=== PATIENT | male | born 1995 | race Caucasian/White ===

== ENCOUNTER 2017-04-17 10:26 | Emergency (ER) | payer BC ==
[~2017-04-17] VITALS: Ht 198.1 cm; Wt 127.1 kg
[2017-04-17 10:29] VITALS: TEMP 36.7; Ht 198.1 cm; Wt 127.1 kg
[2017-04-17] MEDS ORDERED: XYLOCAINE 1%/SOD BICARB 20 ML VIAL INFIL ONE (11:30)
[2017-04-17] MEDS ORDERED: OXYCODONE HCL IR 5 MG TAB (IMMEDIATE RELEASE) PO STA (12:04)
[2017-04-17] MEDS ORDERED: OXYCODONE IR HOME PACK PO ONE (12:15)
[2017-04-17] MEDS ORDERED: AMOXICILLIN/CLAVULANATE TAB 875 MG TAB PO ONE (12:15)
[2017-04-17] MEDS ORDERED: AMOX875T PO (12:18)
--- NOTE | 2017-04-17 12:18 | EMERGENCY ROOM VISIT NOTE ---
History Report prepared by Radhames: Roula Robledo Under the Supervision of: Dr. David Beavers M.D. First contact with patient: 10:32 Chief Complaint: WOUND INFECTION Stated Complaint: ABSCESS X 3 DAYS-NEAR ANUS History of Present Illness The patient is a 22 year old male who presents to the Emergency Room with complaints of an episode of a wound infection starting 3 days ago. The patient states that he has been having anal pain and went to [facility]. He reports that they sent him here. He states that it started after a severe episode of diarrhea. He notes that it is worse when walking. The patient currently rates his pain as a 7/10 in severity. He denies a fever, family history of MRSA or infection, history of abscess, and the use of steroids. Source of History: patient Onset: 3 days ago Position: other (rectum) Symptom Intensity: 7/10 Timing: other (episode) Modifying Factors (Worsening): movement (walking) Associated Symptoms: + diarrhea, No fevers Note: The patient denies a fever, family history of MRSA or infection, history of abscess, and the use of steroids. Review of Systems See HPI for pertinent positives & negatives. A total of 6 systems reviewed and were otherwise negative. Family History No pertinent family history Social History Smoking Status: Never Smoker Drug Use: none Marital Status: single Housing Status: lives with roommate Occupation Status: student Current/Historical Medications Scheduled Amoxicillin & Pot Clavulanate (Augmentin 875-125 mg), 875 MG PO BID Allergies Coded Allergies: No Known Allergies (Unverified , 04/17/17) Physical Exam Vital Signs Date Time Temp Pulse Resp B/P (MAP) Pulse Ox O2 Delivery O2 Flow Rate FiO2 04/17/17 12:26 68 20 158/81 99 Room Air 04/17/17 12:00 68 16 162/64 99 04/17/17 10:29 36.7 75 18 170/80 97 Room Air Physical Exam GENERAL: Patient is well appearing and in no acute distress. HEENT: No acute trauma, normocephalic atraumatic, mucous membranes moist, no nasal congestion, no scleral icterus. NECK: No stridor, no adenopathy, no meningismus, trachea is midline. LUNGS: No dyspnea. Clear to auscultation and equal bilaterally. No wheeze, no rhonchi. HEART: Regular rate and rhythm. No murmurs, rubs, gallops appreciated. ABDOMEN: Soft, nontender, bowel sounds positive, no masses appreciated, no peritonitis. BACK: No midline tenderness, no CVA tenderness : 2 cm firm mass with tenderness to the left rectum. EXTREMITIES: Normal motion all extremities, no cyanosis, no edema. NEUROLOGIC: Alert and oriented, no acute motor or sensory deficits, no focal weakness, cranial nerves grossly intact. SKIN: No rash, no jaundice, no diaphoresis. Medical Decision & Procedures Medications Administered Medications (Trade) Dose Ordered Sig/Jasvir Route Start Time Stop Time Status Last Admin Dose Admin Lidocaine HCl (Buffered Lidocaine 1% Inj) 20 ml ONE ONCE INFIL 04/17/17 11:30 04/17/17 11:31 DC 04/17/17 11:57 20 ML Amoxicillin/ Clavulanate Potassium (Augmentin Tab) 875 mg ONE ONCE PO 04/17/17 12:15 04/17/17 12:16 DC 04/17/17 12:28 875 MG Oxycodone HCl (Roxicodone Immediate Rel Tab) 10 mg NOW STAT PO 04/17/17 12:04 04/17/17 12:05 DC 04/17/17 12:27 10 MG Oxycodone HCl (Roxicodone Immediate Rel 5MG Home Pack) 1 homepack UD ONCE PO 04/17/17 12:15 04/17/17 12:16 DC 04/17/17 12:28 1 HOMEPACK ED Course 1102: The patient was evaluated in room B12B. A complete history and physical exam was performed. 1121: I discussed the patient's case with Dr. Valle. He will come evaluate the patient. 1130: Ordered Lidocaine HCl 20 ml INFIL. 1204: Ordered Oxycodone HCl 10 mg PO. 1213: Reevaluated the patient. Discussed results and discharge instructions: he verbalized understanding and agreement. The patient is ready for discharge. 1215: Ordered Oxycodone HCl 1 homepack PO, Augmentin Tab 875 mg PO. Medical Decision Differential diagnoses include abscess, phlegmon, internal hemorrhoid. 22 yr old male with rectal abscess evaluated and drained by gen surg. Appreciate their help with this case. Will treat with Augmentin, to go oxy ir ( restrictions reviewed) and standard outpatient care of abscess. He is aware the risks of fistula/reaccumulation. Reviewed need to follow up with Gen Surg. Consults Time Called: 1107 Consulting Physician: Dr. Valle Returned Call: 1121 I discussed the patient's case with Dr. Valle. He will come evaluate the patient. Impression Primary Impression: Perirectal abscess Scribe Attestation The scribe's documentation has been prepared under my direction and personally reviewed by me in its entirety. I confirm that the note above accurately reflects all work, treatment, procedures, and medical decision making performed by me. Departure Information Dispostion Home / Self-Care Prescriptions Amoxicillin & Pot Clavulanate (Augmentin 875-125 mg) 1 Tab Tab 875 MG PO BID for 10 Days, #20 TAB Prov: David Beavers M.D. 04/17/17 Referrals Hong Castle M.D. (PCP) Forms HOME CARE DOCUMENTATION FORM, IMPORTANT VISIT INFORMATION, WORK / SCHOOL INSTRUCTIONS Patient Instructions ED Angelica Anal Abscess [facility], My [facility] Additional Instructions Please schedule follow up appointment with Surgeon for recheck. Take warm soapy bath two to three times daily over the next few days. Return immediately if severe pain, heavy bleeding, fevers, or other concerns. You have received a narcotic pain medication. These medications may cause drowsiness and should not be used with other sedative medications. Do not drive , drink alcohol, perform dangerous activities, nor make important decisions after taking these medications. penitentiary use or inappropriate use may lead to addiction.
[2017-04-17 12:26] VITALS: BP 158/81; PULSE 68; O2SAT 99
--- NOTE | 2017-04-17 21:36 | CONSULTATION REPORT ---
DATE OF CONSULTATION: 04/17/2017 SEEN IN: Emergency Room on 04/17/2017. TIME SEEN: At 12:00. SUMMARY: I was called by the ER regarding Ian Renteria, who presented with a roughly of a 3-day history of perirectal pain. He was evaluated on a clinical basis. He apparently had a small perirectal abscess. Therefore, we came in to evaluate him. This is a 22-year-old student who has had bouts of diarrhea for the last 3 or 4 days and noticed some perirectal pain. On examination, his temperature was 36.7, his pulse 60, respirations 16, blood pressure 162/64. In the prone position, the cheeks were spread. At the 3 o'clock position, there seemed an area of fluctuance that was quite tender, probably about a cm and a half or two at most in diameter. There was no skin cellulitis. But consistently, it had findings of an abscess. The area was shaved and prepped with Betadine solution. The 1% Xylocaine without epinephrine was used to infiltrate on top of it until achieving a satisfactory level. At this point, we made about 1 inch incision through the area, some bloody and slightly purulent fluid came out, but nothing significantly as far as under pressure. I probed the area with pickups and a small needle nazario and could not elicit any more drainage. I did not pack the area. I basically placed a 4 x 4 in the area. Asked the gentleman to use some Sitz bath. We will give him some Augmentin and he is to follow up in our office in over a week or when his time permits.. I know that what is his schedule, what supports him and I will be available this week, but he certainly can call us if any time if there are any new problems arise. As stated, he will be out of town from Tuesday on. MTDD
== END 2017-04-17 12:37 | disposition home or self-care (01) ==
LOC: C.EDB 10:28
DX: K61.1 Rectal abscess (principal)

== ENCOUNTER 2018-01-06 13:08 | Emergency (ER) | payer BC ==
[~2018-01-06] VITALS: Ht 198.1 cm; Wt 129.2 kg
[2018-01-06 13:29] VITALS: TEMP 36.7; Ht 198.1 cm; Wt 129.2 kg
[2018-01-06] MEDS ORDERED: AMOXICILLIN/CLAVULANATE TAB 875 MG TAB PO ONE (14:15)
[2018-01-06] MEDS ORDERED: LIDO/EPINEPHRINE/SOD BICARB 20 ML VIAL INFIL ONE (14:15)
[2018-01-06] MEDS ORDERED: AMOX875T PO (15:02)
[2018-01-06] MEDS ORDERED: HYDR-5688 PO (15:02)
--- NOTE | 2018-01-06 15:04 | EMERGENCY ROOM VISIT NOTE ---
ED Visit Note First contact with patient: 13:40 CHIEF COMPLAINT: Infection near rectum 2-3 days HISTORY OF PRESENT ILLNESS: Patient is a healthy 22-year-old male who presents emergency department for an infection near his rectum. He states that he had an abscess there in April that was drained by surgery. Initial I&D was performed here in the emergency department by Dr. Valle, then had to be redone in the office a few days later. Patient states that he did well until the last 2-3 days. He had pressure on the left side of his buttocks/rectal area for about 2-3 days and developed more pain today. No drainage or discharge noted. No fever or chills. He rates his pain a 5/10. REVIEW OF SYSTEMS: Review of systems as per HPI. All other systems reviewed were negative. 10 systems reviewed. PMH: Electronic medical records are reviewed and summarized as above/below. See Problem List. SOCIAL HISTORY: Patient lives at home with his family. College student. He does not smoke.. PHYSICAL EXAM: Vital Signs: Reviewed Nurse's notes. CONSTITUTIONAL: Patient is a well-appearing 22-year-old male who is awake and alert and in no acute distress. INTEGUMENTARY: Examination of the left fabrice-anal area note no erythema, increased warmth or overt cellulitic changes. At roughly 7 or 8:00 off of the lateral aspect of the rectum, he does have a tender, slightly indurated area. It is about the width of my fingertip. There is no fluctuance appreciated and no pointing. EMERGENCY DEPARTMENT COURSE: The patient was seen and assessed as above. His old records were reviewed. He presents the emergency department with a left- sided perianal abscess that he has had previously. He would like to proceed with I&D. Procedure note is as noted below. A small amount of packing was placed. Wound care measures were discussed. Patient only placed on Augmentin. He was given [place] for pain. He will return to the emergency department in 48 hours for a wound recheck and packing removal. Differential diagnoses include cellulitis, perirectal/perianal abscess, among others. Medication reconciliation: I attest that I have personally reviewed the patient' s current medication list. Blood pressure screening: Patient was found to have a slightly elevated blood pressure due to circumstances. I do not believe that the patient requires hypertension monitoring. Using saline and Betadine cleansing, lidocaine anesthesia, and sterile technique, the abscess cavity was incised with a number 15 scalpel blade. Purulent material drained and more was expressed. The abscess cavity was then cleaned out with cotton-tipped applicator swabs dipped in Betadine and an iodoform guaze drain inserted. Problem List Medical Problems: (1) Perirectal abscess Status: Resolved Surgical Problems: (1) History of elbow surgery Status: Resolved Current/Historical Medications Scheduled Amoxicillin & Pot Clavulanate (Augmentin 875-125 mg), 1 TAB PO BID Scheduled PRN Hydrocodone/Acetaminophen 5MG/325MG ([place] 5MG/325MG), 1-2 TABLETS PO Q4 PRN for Pain Allergies Coded Allergies: No Known Allergies (Unverified , 04/17/17) Vital Signs Date Time Temp Pulse Resp B/P (MAP) Pulse Ox O2 Delivery O2 Flow Rate FiO2 01/06/18 15:09 68 16 145/78 96 01/06/18 13:29 36.7 72 18 162/86 96 Room Air Medications Administered Medications (Trade) Dose Ordered Sig/Jasvir Route Start Time Stop Time Status Last Admin Dose Admin Amoxicillin/ Clavulanate Potassium (Augmentin Tab) 875 mg ONE ONCE PO 01/06/18 14:15 01/06/18 14:16 DC 01/06/18 14:29 875 MG Departure Information Impression Primary Impression: Perianal abscess Prescriptions Hydrocodone/Acetaminophen 5MG/325MG ([place] 5MG/325MG) Tab 1-2 TABLETS PO Q4 Y for Pain, #14 TAB For Initial Treatment Prov: Kay Moore PA 01/06/18 Amoxicillin & Pot Clavulanate (Augmentin 875-125 mg) 1 Tab Tab 1 TAB PO BID, #20 TAB Prov: Kay Moore PA 01/06/18 Referrals No Doctor, Assigned (PCP) Dhaval Valle M.D. Patient Instructions My [facility] Additional Instructions Hydrocodone/Acetaminophen ([place]) 5/325 mg: Take 1-2 pills every four hours for breakthrough pain. Avoid alcohol, operating machinery or dangerous equipment, working on ladders or roofs, DRIVING, or situations where being under the influence may be dangerous. It is recommended to use an elby-bwn-iogsbog stool softener such as Colace, 100mg twice daily while taking this medication to avoid constipation. Amoxicillin Clavulanate (Augmentin) 875mg: Take one pill twice daily for 10 days for your infection. All antibiotics can cause diarrhea. If this occurs and you feel worse or it does not resolve in 1-2 days follow up with your doctor or return to the Emergency Department as this could be signs of serious underlying problems. Any medication can cause an allergic reaction, stop the pills immediately and return to the ER for rash, hives, breathing difficulties, or swelling. Ibuprofen(Motrin, Advil) may be used for fever or pain. Use 600mg every six hours as needed. Take with food. Avoid using more than 2400mg in a 24 hour period. Do not use 2400mg per day for more than three consecutive days without physician direction. Prolonged inappropriate use can lead to stomach upset or ulcers. (AND/OR) Acetaminophen(Tylenol) may be used for fever or pain. Use 1000mg every six hours as needed. Avoid using more than 3000mg in a 24 hour period. Warm compresses or sitz baths to the affected area 4 times daily for 15-20 minutes. May shower. Be careful to not remove the packing material when bathing or changing the bandage. Rest and drink plenty of fluids. Continue current medications. Return to the ER in 48 hours for packing removal and wound recheck, sooner for severe pain, persistent fevers, spreading redness, or any worsening of your condition. Follow up with your general surgeon next week for recheck.
[2018-01-06 15:09] VITALS: BP 145/78; PULSE 68; O2SAT 96
== END 2018-01-06 15:12 | disposition home or self-care (01) ==
LOC: C.EDB 13:09 → C.EDD 15:12
DX: K61.0 Anal abscess (principal)

== ENCOUNTER 2018-01-08 10:18 | Emergency (ER) | payer BC ==
[~2018-01-08] VITALS: Ht 198.1 cm; Wt 130.9 kg
[~2018-01-08 10:18] MED LIST: AMOX875T PO; HYDR-5688 PO
[2018-01-08 10:35] VITALS: Ht 198.1 cm; Wt 130.9 kg
[2018-01-08] MEDS ORDERED: LIDO/EPINEPHRINE/SOD BICARB 20 ML VIAL INFIL ONE (11:00)
--- NOTE | 2018-01-08 11:53 | EMERGENCY ROOM VISIT NOTE ---
ED Visit Note First contact with patient: 10:38 CHIEF COMPLAINT: Recheck perianal abscess HISTORY OF PRESENT ILLNESS: Patient is a 22-year-old male who returns the emergency department as advised for recheck of a perianal abscess. He was seen and evaluated by myself 2 days ago for similar complaint. I&D was performed, with some purulent drainage noted. The patient actually called in and spoke with me yesterday that he was concerned that the packing had become dislodged while bathing yesterday, but he did feel that it was still in the wound. He returns today for recheck and packing removal. He does note increasing pain however. He has had no further drainage since yesterday. He is taking the Augmentin as prescribed. Stanton is helping for pain at night so that he can sleep. REVIEW OF SYSTEMS: Review of systems as per HPI. All other systems reviewed were negative. At least 6 systems reviewed. PMH: Electronic medical records are reviewed and summarized as above/below. See Problem List. SOCIAL HISTORY: Patient lives at home. College student. PHYSICAL EXAM: Vital Signs: Reviewed Nurse's notes. Patient is a well- appearing 22-year-old male who is awake and alert and in no acute distress. INTEGUMENTARY: Examination of the rectal area shows the packing to be gone, and the small I&D site is already granulating over and is only able to be with attention. The patient appears to have a more well-defined abscess on the left side, extending out from the rectal area more laterally. There is a significant area of tenderness, but no overt fluctuance. EMERGENCY DEPARTMENT COURSE: The patient was seen and assessed as above. On examination the packing is gone. The tiny I&D site from 2 days ago is essentially granulated closed. The abscess however does appear to be more superficial and well-defined. The actual area of tenderness and fluctuance is more lateral than it was a couple of days ago. Repeat ID was discussed and patient was in agreement. I&D was performed as noted below in the procedure note. There was significant purulent drainage, I was able to enter a obvious cavity and decompress the abscess. Patient will continue the Augmentin. Continue local wound care measures as previously discussed. He was advised to recheck with Dr. Valle in 48 hours, as he treated the patient for his 1st abscess. Medication reconciliation: I attest that I have personally reviewed the patient' s current medication list. Blood pressure screening: Patient was found to have a slightly elevated blood pressure due to circumstances. I do not believe that the patient requires hypertension monitoring. Incision & Drainage Indication: Recurrent left perianal abscess Location: Perianal area Verbal consent was obtained after the risks and benefits were explained, including but not limited to bleeding, scarring, infection, pain, and bone/joint /nerve damage. At this time, the risks of the procedure are less than the risks of NOT performing the procedure. A time out was taken and the correct patient and site identified. The skin was prepped with betadine and a sterile field set. The wound was anesthetized with lidocaine without epinephrine. The abscess cavity was entered with a number 11 blade and significant purulent material was expressed with pressure, I was able to enter a well-defined abscess cavity with the needle diesel pile driver operator and broke a gauze dressing was applied. A sterile dressing applied. Detailed wound care instructions and signs and symptoms of worsening infection reviewed with the patient. No complications and the patient tolerated the procedure well. Problem List Medical Problems: (1) Perirectal abscess Status: Resolved Surgical Problems: (1) History of elbow surgery Status: Resolved Current/Historical Medications Scheduled Amoxicillin & Pot Clavulanate (Augmentin 875-125 mg), 1 TAB PO BID Scheduled PRN Hydrocodone/Acetaminophen 5MG/325MG (Stanton 5MG/325MG), 1-2 TABLETS PO Q4 PRN for Pain Allergies Coded Allergies: No Known Allergies (Unverified , 01/08/18) Vital Signs Date Time Temp Pulse Resp B/P (MAP) Pulse Ox O2 Delivery O2 Flow Rate FiO2 01/08/18 11:54 36.7 76 20 148/71 95 01/08/18 10:35 36.7 76 20 148/71 95 Room Air Departure Information Impression Primary Impression: Perianal abscess Referrals No Doctor, Assigned (PCP) Dhaval Valle M.D. Patient Instructions My [facility] Additional Instructions Finish Augmentin as prescribed. Continue Stanton, Tylenol and ibuprofen as previously discussed for pain. Warm compresses/Sitz baths to the affected area 4 times daily for 15-20 minutes. Rest and drink plenty of fluids. Continue current medications. Follow up with general surgery this week for recheck and packing removal. Return to the ED as needed.
[2018-01-08 11:54] VITALS: BP 148/71; PULSE 76; TEMP 36.7; O2SAT 95
== END 2018-01-08 11:55 | disposition home or self-care (01) ==
LOC: C.EDB 10:21 → C.EDD 11:55
DX: K61.0 Anal abscess (principal)